=== PATIENT | female | born 1970 | race Caucasian/White ===

== ENCOUNTER → 2023-03-15 09:36 | Outpatient (BNVA) | payer SELFPAY | PROVIDERS: Visit Provider Nurse Practitioner Family | DX: H93.13 Tinnitus, bilateral (principal); H92.03 Otalgia, bilateral; M26.609 Unspecified temporomandibular joint disorder, unspecified side; E11.9 Type 2 diabetes mellitus without complications; E78.5 Hyperlipidemia, unspecified; E88.2 Lipomatosis, not elsewhere classified; F17.200 Nicotine dependence, unspecified, uncomplicated; F41.8 Other specified anxiety disorders; I10 Essential (primary) hypertension; M79.7 Fibromyalgia; J06.9 Acute upper respiratory infection, unspecified | CPT/HCPCS: 80053; 80061; 83036; 84443 ==

== ENCOUNTER → 2023-04-18 08:51 | Outpatient (BNVA) | payer SELFPAY | PROVIDERS: Visit Provider Nurse Practitioner Family | DX: J01.00 Acute maxillary sinusitis, unspecified (principal); H66.93 Otitis media, unspecified, bilateral; J06.9 Acute upper respiratory infection, unspecified; R30.0 Dysuria | CPT/HCPCS: 87486; 87581; 87633 ==